=== PATIENT | female | born 1940 | race American Indian/Alaskan Native ===

== ENCOUNTER 2019-03-31 20:58 | Emergency (ER) | payer MEDICARE ==
--- NOTE | 2019-03-31 21:16 | Event Note ---
ED Screening Note ED Screening Note: pt presents with right wrist and hand pain that began today no fall states that she was pushing her when it started PMHx HTN allergy: aspirin, caffeine This initial assessment/diagnostic orders/clinical plan/treatment(s) is/are subject to change based on patients health status, clinical progression and re- assessment by fellow clinical providers in the ED. Further treatment and workup at subsequent clinical providers discretion. Patient/guardian urged not to elope from the ED as their condition may be serious if not clinically assessed and managed. Initial orders include: XR right wrist and hand
[2019-03-31 21:17] VITALS: BP 153/72
--- NOTE | 2019-03-31 22:04 | XRay Report ---
RIGHT WRIST 4 VIEWS RIGHT HAND 3 VIEWS INDICATION: Right hand and wrist pain, no known trauma. COMPARISON: No relevant prior imaging study available. FINDINGS: Right wrist: There is a punctate calcific density along the dorsal aspect of the carpus on the latera l view. This could be nonspecific soft tissue calcification, even vascular. This does not have the ty pical appearance for a dorsal triquetral fracture. No acute, displaced fracture is seen. Carpal align ment is normal. Osteoarthrosis changes are noted. No focal soft tissue swelling. Right hand: Osteoarthrosis changes are noted. There is no acute skeletal abnormality. No focal soft t issue swelling or foreign bodies. IMPRESSION: 1. No acute findings. Signer Name: Naseem Turner MD Signed: 03/31/2019 10:00 PM Workstation Name: [id number]
[2019-03-31] MEDS ORDERED: DELTASONE PO ONE (23:08)
[2019-03-31] MEDS ORDERED: TYLENOL PO ONE (23:08)
[2019-03-31] MEDS ORDERED: ULTRAM PO ONE (23:08)
--- NOTE | 2019-03-31 23:45 | Emergency Department Report ---
Upper Extremity - HPI Chief Complaint: Extremity Injury, Upper Stated Complaint: RIGHT HAND PAIN Time Seen by Provider: 03/31/19 21:14 Upper Extremity: Right Hand Occurred When: Today Severity: moderate Symptoms: Yes Pain with Movement, Yes Limited Range of Movement, Yes Swelling, No Deformity, No Numbness, No Weakness, No Bruising/Ecchymosis, No Laceration or Abrasion Other History: pt is a 78 y/o aaf with hx of arthralgia who presents for right hand pain and swelling onset today no fall injury or trauma pain is 5/10 aching exacerbated by movement and palpation no deformity no numbness no tingling ED Review of Systems ROS: Stated complaint: RIGHT HAND PAIN Other details as noted in HPI Constitutional: denies: chills, fever Eyes: denies: eye pain, eye discharge, vision change ENT: denies: ear pain, throat pain Respiratory: denies: cough, shortness of breath, wheezing Cardiovascular: denies: chest pain, palpitations Endocrine: no symptoms reported Gastrointestinal: denies: abdominal pain, nausea, diarrhea Genitourinary: denies: urgency, dysuria, discharge Musculoskeletal: arthralgia, myalgia, other (right hand ) Skin: denies: rash, lesions Neurological: denies: headache, weakness, paresthesias Psychiatric: denies: anxiety, depression Hematological/Lymphatic: denies: easy bleeding, easy bruising ED Past Medical Hx - Past Medical History Previous Medical History?: Yes Hx Hypertension: Yes Hx Diabetes: Yes Hx Sickle Cell Disease: Yes (SICKLE CELL TRAIT) Hx Arthritis: Yes (RIGHT KNEE) - Surgical History Past Surgical History?: No - Social History Smoking Status: Never Smoker Substance Use Type: None - Medications Home Medications: Home Medications Medication Instructions Recorded Confirmed Last Taken Type Aspirin EC [Aspirin Enteric Coated 81 mg PO QDAY 04/24/15 05/15/15 05/08/15 History TAB] AtorvaSTATin [Lipitor] 20 mg PO DAILY 04/24/15 05/15/15 05/12/15 History Calcium Carbonate/Vitamin D3 1 each PO DAILY 04/24/15 05/15/15 05/12/15 History [Caltrate 600 + D Soft Chew Tab] Metoprolol Xl [Metoprolol 25 mg PO QDAY 04/24/15 05/15/15 05/15/15 04:30 History SUCCINATE ER TAB] Multivit-Min/Iron/Folic/Lutein 1 each PO DAILY 04/24/15 05/15/15 05/12/15 History [Centrum Silver Women Tablet] Triamterene [Dyrenium] 25 mg PO DAILY 04/24/15 05/15/15 05/15/15 04:30 History Acetaminophen [Arthritis Pain 650 mg PO QID PRN #60 tablet.er 03/31/19 Unknown Rx Reliever] Acetaminophen/Codeine [Tylenol 1 tab PO Q6H PRN #12 tab 03/31/19 Unknown Rx /Codeine # 3 tab] predniSONE [Deltasone] 40 mg PO QDAY 5 Days #10 tab 03/31/19 Unknown Rx Upper Extremity Exam - Exam General: Vital signs noted. No distress. Alert and acting appropriately. Head and Torso: No HEENT Abnormality, No Neck Tenderness, No Chest/Lungs Abnormality, No Abdominal Tenderness, No Back Tenderness Shoulder Exam: Yes Normal Range of Motion in Shoulder, No Shoulder Tenderness, No Clavicle Tenderness, No Shoulder Deformity, No AC Joint Tenderness Arm Exam: No Arm/Humerus Tenderness, No Arm Deformity Elbow: No Elbow Tenderness, No Normal Range of Motion in Elbow, No Elbow Deformity Forearm: No Forearm Tenderness, No Forearm Deformity, No Pain with Pronation, No Pain with Supination Wrist: Yes Wrist Tenderness, Yes Normal ROM in Wrist, No Wrist Deformity, No Snuffbox Tenderness, No Pain with Axial Thumb Compression Hand: Yes Hand Tenderness, Yes Normal ROM in Digit(s), No Hand Deformity, No Digit Tenderness, No Digit(s) Deformity, No Tendon Dysfunction CMS Exam: Yes 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 COMPARISON: No relevant prior imaging study available. FINDINGS: Right wrist: There is a punctate calcific density along the dorsal aspect of the carpus on the lateral view. This could be nonspecific soft tissue calcification, even vascular. This does not have the typical appearance for a dorsal triquetral fracture. No acute, displaced fracture is seen. Carpal alignment is normal. Osteoarthrosis changes are noted. No focal soft tissue swelling. Right hand: Osteoarthrosis changes are noted. There is no acute skeletal abnormality. No focal soft tissue swelling or foreign bodies. IMPRESSION: 1. No acute findings. Signer Name: Naseem Turner MD Signed: 03/31/2019 10:00 PM Workstation Name: [id number] Transcribed By: SW Dictated By: Naseem Turner MD Electronically Authenticated By: Naseem Turner MD Signed Date/Time: 03/31/192199 DD/ 57 TD/TT: - Medical Decision Making pain is improved rom improved xray: osteoarthritis changes will treat with prednisone , tylenol, tylenol 3 for break through, follow up with ortho and or pcp in 2-3 days pt and family member verbalized agreement and understanding of same. Critical care attestation.: If time is entered above; I have spent that time in minutes in the direct care of this critically ill patient, excluding procedure time. ED Disposition Clinical Impression: Arthralgia Qualifiers: Joint pain location: hand Laterality: right Qualified Code(s): M25.541 - Pain in joints of right hand Disposition: DC-01 TO HOME OR SELFCARE Is pt being admited?: No Does the pt Need Aspirin: No Condition: Stable Instructions: Arthralgia (ED) Prescriptions: Acetaminophen [Arthritis Pain Reliever] 650 mg PO QID PRN #60 tablet.er PRN Reason: pain predniSONE [Deltasone] 40 mg PO QDAY 5 Days #10 tab Acetaminophen/Codeine [Tylenol /Codeine # 3 tab] 1 tab PO Q6H PRN #12 tab PRN Reason: pain Referrals: JORGE L OVERTON MD [Staff Physician] - 3-5 Days PAUL BUSTILLOS MD [Staff Physician] - 3-5 Days Forms: Work/School Release Form(ED) Time of Disposition: 23:51
== END 2019-04-01 00:05 | disposition home or self-care (01) ==
LOC: ED 20:58
DX: M25.541 Pain in joints of right hand (principal); I10 Essential (primary) hypertension; E11.9 Type 2 diabetes mellitus without complications; M13.861 Other specified arthritis, right knee; D57.1 Sickle-cell disease without crisis; Z79.899 Other long term (current) drug therapy; Z88.6 Allergy status to analgesic agent
CPT/HCPCS: 73110; 73130; 99283; J7512

== ENCOUNTER 2019-04-21 22:45 | Observation (INO) | payer MEDICARE ==
--- NOTE | 2019-04-21 23:00 | Emergency Department Report ---
ED Chest Pain HPI - General Stated Complaint: CHEST PAIN Time Seen by Provider: 04/21/19 22:59 Source: patient, family, EMS Mode of arrival: Stretcher Limitations: Altered Mental Status - History of Present Illness Initial Comments: Patient is a 78-year-old female that presented to emergency room with complaints of chest pain as started 2 hours ago. Patient states she's had chest pain off and on for the last 24 hours but 2 hours became on stronger and more forceful. Patient denies shortness of breath. Patient denies diaphoresis. Patient denies nausea vomiting. Patient states the chest pain is in her left chest and nonradiating. Patient states the pain is a 10 out of 10. Patient states she has a past medical history of hypertension and diabetes. Patient denies CAD and [place]. MD Complaint: chest pain -: Sudden Onset: during rest Pain Location: substernal, left chest Pain Radiation: none Severity: severe Severity scale (0 -10): 10 Quality: sharp Consistency: constant, intermittent Improves With: rest Worsens With: exertion re: denies: nausea, vomting, diaphoresis, dyspnea, sense of impending doom Other Symptoms: denies: cough, fever, syncope, rash, acid taste in mouth, leg swelling, palpitations, burping Treatments Prior to Arrival: none Aspirin use within the Past 7 Days: (0) No - Related Data On Oral Contraceptives: No Home Medications Medication Instructions Recorded Confirmed Last Taken Aspirin EC [Aspirin Enteric Coated 81 mg PO QDAY 04/24/15 05/15/15 05/08/15 TAB] AtorvaSTATin [Lipitor] 20 mg PO DAILY 04/24/15 05/15/15 05/12/15 Calcium Carbonate/Vitamin D3 1 each PO DAILY 04/24/15 05/15/15 05/12/15 [Caltrate 600 + D Soft Chew Tab] Metoprolol Xl [Metoprolol 25 mg PO QDAY 04/24/15 05/15/15 05/15/15 04:30 SUCCINATE ER TAB] Multivit-Min/Iron/Folic/Lutein 1 each PO DAILY 04/24/15 05/15/15 05/12/15 [Centrum Silver Women Tablet] Triamterene [Dyrenium] 25 mg PO DAILY 04/24/15 05/15/15 05/15/15 04:30 Previous Rx's Medication Instructions Recorded Last Taken Type Acetaminophen [Arthritis Pain 650 mg PO QID PRN #60 tablet.er 03/31/19 Unknown Rx Reliever] Acetaminophen/Codeine [Tylenol 1 tab PO Q6H PRN #12 tab 03/31/19 Unknown Rx /Codeine # 3 tab] predniSONE [Deltasone] 40 mg PO QDAY 5 Days #10 tab 03/31/19 Unknown Rx Allergies Allergy/AdvReac Type Severity Reaction Status Date / Time aspirin Allergy Hives Verified 05/09/15 15:29 caffeine AdvReac Dizziness Verified 04/24/15 09:18 Heart Score - HEART Score History: Moderately suspicious EKG: Non-specific Age: > 65 Risk factors: 1-2 risk factors Troponin: < normal limit HEART Score: 5 ED Review of Systems ROS: Stated complaint: CHEST PAIN Other details as noted in HPI Constitutional: denies: chills, fever Eyes: denies: eye pain, eye discharge, vision change ENT: denies: ear pain, throat pain Respiratory: denies: cough, shortness of breath, wheezing Cardiovascular: chest pain. denies: palpitations Endocrine: no symptoms reported Gastrointestinal: denies: abdominal pain, nausea, diarrhea Genitourinary: denies: urgency, dysuria, discharge Musculoskeletal: denies: back pain, joint swelling, arthralgia Skin: denies: rash, lesions Neurological: denies: headache, weakness, paresthesias Psychiatric: denies: anxiety, depression Hematological/Lymphatic: denies: easy bleeding, easy bruising ED Past Medical Hx - Past Medical History Previous Medical History?: Yes Hx Hypertension: Yes Hx Diabetes: Yes Hx Sickle Cell Disease: Yes (SICKLE CELL TRAIT) Hx Arthritis: Yes (RIGHT KNEE) - Surgical History Past Surgical History?: Yes - Family History Family history: no significant - Social History Smoking Status: Never Smoker Substance Use Type: None - Medications Home Medications: Home Medications Medication Instructions Recorded Confirmed Last Taken Type Aspirin EC [Aspirin Enteric Coated 81 mg PO QDAY 04/24/15 05/15/15 05/08/15 History TAB] AtorvaSTATin [Lipitor] 20 mg PO DAILY 04/24/15 05/15/15 05/12/15 History Calcium Carbonate/Vitamin D3 1 each PO DAILY 04/24/15 05/15/15 05/12/15 History [Caltrate 600 + D Soft Chew Tab] Metoprolol Xl [Metoprolol 25 mg PO QDAY 04/24/15 05/15/15 05/15/15 04:30 History SUCCINATE ER TAB] Multivit-Min/Iron/Folic/Lutein 1 each PO DAILY 04/24/15 05/15/15 05/12/15 History [Centrum Silver Women Tablet] Triamterene [Dyrenium] 25 mg PO DAILY 04/24/15 05/15/15 05/15/15 04:30 History Acetaminophen [Arthritis Pain 650 mg PO QID PRN #60 tablet.er 03/31/19 Unknown Rx Reliever] Acetaminophen/Codeine [Tylenol 1 tab PO Q6H PRN #12 tab 03/31/19 Unknown Rx /Codeine # 3 tab] predniSONE [Deltasone] 40 mg PO QDAY 5 Days #10 tab 03/31/19 Unknown Rx ED Physical Exam - General Limitations: No Limitations General appearance: alert, in no apparent distress - Head Head exam: Present: atraumatic, normocephalic - Eye Eye exam: Present: normal appearance - ENT ENT exam: Present: mucous membranes moist - Neck Neck exam: Present: normal inspection - Respiratory Respiratory exam: Present: normal lung sounds bilaterally. Absent: respiratory distress - Cardiovascular Cardiovascular Exam: Present: regular rate, normal rhythm. Absent: systolic murmur, diastolic murmur, rubs, gallop - GI/Abdominal GI/Abdominal exam: Present: soft, normal bowel sounds - Extremities Exam Extremities exam: Present: normal inspection - Back Exam Back exam: Present: normal inspection - Neurological Exam Neurological exam: Present: alert, oriented X3 - Psychiatric Psychiatric exam: Present: normal affect, normal mood - Skin Skin exam: Present: warm, dry, intact, normal color. Absent: rash ED Course Vital Signs 04/21/19 04/21/19 04/22/19 23:04 23:08 00:00 Temperature 98.2 F Pulse Rate 67 64 Respiratory 18 18 Rate Blood Pressure 155/77 147/64 O2 Sat by Pulse 100 100 98 Oximetry - Reevaluation(s) Reevaluation #1: Patient's primary care doctor Cristal. I discussed all results with patient. I discussed plan of care outpatient. Patient agrees to plan of care. 04/22/19 00:33 - Consultations Consultation #1: Patient's primary care paged 04/22/19 00:33 I discussed case with primary care, Dr. Adrian. Dr. Adrian states the patient admit the patient to tele. 04/22/19 00:37 JOSE M score - Jose M Score Age > 65: (1) Yes Aspirin use within the Past 7 Days: (0) No 3 or more CAD Risk Factors: (0) No 2 or more Angina events in past 24 hrs: (1) Yes Known CAD with more than 50% Stenosis: (0) No Elevated Cardiac Markers: (0) No ST Deviation Greater than 0.5mm: (0) No JOSE M Score: 2 ED Medical Decision Making - Lab Data Result diagrams: 04/21/19 23:18 04/21/19 23:18 - EKG Data -: EKG Interpreted by Me EKG shows normal: sinus rhythm, axis, intervals, QRS complexes, ST-T waves Rate: normal - Radiology Data Radiology results: report reviewed, image reviewed CHEST 1 VIEW INDICATION / CLINICAL INFORMATION: Chest Pain. COMPARISON: None available. FINDINGS: SUPPORT DEVICES: None. HEART / MEDIASTINUM: No significant abnormality. LUNGS / PLEURA: No significant pulmonary or pleural abnormality. No pneumothorax. ADDITIONAL FINDINGS: No significant additional findings. IMPRESSION: 1. No significant change - Medical Decision Making Patient is a 78-year-old female presents emergency room with complaints of chest pain. This is her score is 5. Patient's labs unremarkable. Patient's chest pain started 2 hours ago. Patient admitted to the pcp's service. Patient allergic to aspirin. Patient given morphine for the pain. Patient placed on oxygen. Patient's chest x-ray negative. EKG negative. - Differential Diagnosis ACS. Chest pain. Diabetes. Critical Care Time: Yes Critical care attestation.: If time is entered above; I have spent that time in minutes in the direct care of this critically ill patient, excluding procedure time. Critical Care Time: 35 minutes ED Disposition Clinical Impression: Chest pain Qualifiers: Chest pain type: unspecified Qualified Code(s): R07.9 - Chest pain, unspecified Diabetes Qualifiers: Diabetes mellitus type: type 2 Diabetes mellitus nursing home insulin use: unspecified nursing home insulin use status Diabetes mellitus complication status: with other specified complication Qualified Code(s): E11.69 - Type 2 diabetes mellitus with other specified complication Disposition: OP ADMIT IP TO THIS HOSP Is pt being admited?: Yes Does the pt Need Aspirin: No Condition: Critical Time of Disposition: 00:27
[2019-04-21 23:27] LABS: Basophils % (Auto) 0.7 % (0.0-1.8); Eosinophils # (Auto) 0.1 K/mm3 (0.0-0.4); Eosinophils % (Auto) 2.3 % (0.0-4.3); Hematocrit 35.9 % (30.3-42.9); Hemoglobin 11.9 gm/dl (10.1-14.3); Lymphocytes # (Auto) 1.8 K/mm3 (1.2-5.4); Lymphocytes % (Auto) 42.1 % (13.4-35.0); Mean Corpuscular HGB Conc 33 % (30-34); Mean Corpuscular Volume 92 fl (79-97); Monocytes # (Auto) 0.4 K/mm3 (0.0-0.8); Monocytes % (Auto) 8.4 % (0.0-7.3); Platelet Count 195 K/mm3 (140-440); Red Blood Count 3.92 M/mm3 (3.65-5.03); Red Cell Distribution Width 15.5 % (13.2-15.2)
--- NOTE | 2019-04-21 23:36 | XRay Report ---
CHEST 1 VIEW INDICATION / CLINICAL INFORMATION: Chest Pain. COMPARISON: None available. FINDINGS: SUPPORT DEVICES: None. HEART / MEDIASTINUM: No significant abnormality. LUNGS / PLEURA: No significant pulmonary or pleural abnormality. No pneumothorax. ADDITIONAL FINDINGS: No significant additional findings. IMPRESSION: 1. No significant change Signer Name: Ramirez Meyer MD Signed: 04/21/2019 11:31 PM Workstation Name: [id number]
[2019-04-21 23:45] LABS: Alanine Aminotransferase 19 units/L (7-56); Albumin 4.2 g/dL (3.9-5); BUN/Creatinine Ratio 24; Blood Urea Nitrogen 24 mg/dL (7-17); Calcium 9.3 mg/dL (8.4-10.2); Hemolysis Index 0
[2019-04-22] MEDS ORDERED: MORPHINE IV ONE
[2019-04-22] MEDS ORDERED: ACETAMINOPHEN 650 MG PO PRN (09:55)
[2019-04-22] MEDS ORDERED: NON-FORMULARY (Multivit-Min/Iron/Folic/Lutein [Centrum Silver Women Tablet] 1 EACH) PO SCH (10:00)
[2019-04-22] MEDS ORDERED: NON-FORMULARY (Calcium Carbonate/Vitamin D3 [Caltrate 600 + D Soft Chew Tab] 1 EACH) PO SCH (10:00)
[2019-04-22] MEDS ORDERED: SODIUM CHLORIDE FLUSH SYRINGE 10 ML IV PRN (10:01)
[2019-04-22] MEDS ORDERED: MORPHINE IV PRN (10:01)
--- NOTE | 2019-04-22 10:01 | History and Physical Report ---
History of Present Illness Date of examination: 04/22/19 Date of admission: 04/22/19 00:37 Chief complaint: chest pain - 1 day History of present illness: Patient is a 78-year-old female that presented to emergency room with complaints of left sided chest pain as started 2 prior to presentation. Patient states she's had chest pain off and on for the last 24 hours but 2 hours progressively getting worse. Reproducible. Patient denies shortness of breath, diaphoresis, nausea vomiting. Nonradiating. Patient states the pain is a 10 out of 10. Patient states she has a past medical history of hypertension and diabetes. Patient denies CAD and [place]. At the Ed, Initial set of Alo was normal. SBP was found to be elevated to 170s. Past History Past Medical History: diabetes, hypertension Past Surgical History: No surgical history Social history: denies: smoking, alcohol abuse Family history: hypertension Medications and Allergies Allergies Allergy/AdvReac Type Severity Reaction Status Date / Time aspirin Allergy Hives Verified 05/09/15 15:29 caffeine AdvReac Dizziness Verified 04/24/15 09:18 Home Medications Medication Instructions Recorded Confirmed Last Taken Type Aspirin EC [Aspirin Enteric Coated 81 mg PO QDAY 04/24/15 04/22/19 05/08/15 History TAB] Calcium Carbonate/Vitamin D3 1 each PO DAILY 04/24/15 04/22/19 05/12/15 History [Caltrate 600 + D Soft Chew Tab] Metoprolol Xl [Metoprolol 25 mg PO QDAY 04/24/15 04/22/19 05/15/15 04:30 History SUCCINATE ER TAB] Multivit-Min/Iron/Folic/Lutein 1 each PO DAILY 04/24/15 04/22/19 05/12/15 History [Centrum Silver Women Tablet] Acetaminophen [Arthritis Pain 650 mg PO QID PRN #60 tablet.er 03/31/19 04/22/19 Unknown Rx Reliever] Pravastatin Sodium [Pravastatin] 20 mg PO QHS 04/22/19 04/22/19 Unknown History Triamter/Hctz 37.5-25 mg 1 tab PO QDAY 04/22/19 04/22/19 Unknown History [Maxzide-25] metFORMIN [Glucophage] 500 mg PO BID 04/22/19 04/22/19 Unknown History Active Meds: Active Medications Aspirin (Halfprin Ec) 81 mg PO QDAY ANNELISE Metformin HCl (Glucophage) 500 mg PO BID [facility] Metoprolol Succinate (Toprol Xl) 25 mg PO QDAY [facility] Miscellaneous Medication (Acetaminophen [Arthritis Pain Reliever]) 650 mg PO QID PRN PRN Reason: pain Miscellaneous Medication (Calcium Carbonate/Vitamin D3 [Caltrate 600 + D Soft Chew Tab]) 1 each PO DAILY ANNELISE Miscellaneous Medication (Multivit-Min/Iron/Folic/Lutein [Centrum Silver Women Tablet]) 1 each PO DAILY ANNELISE Miscellaneous Medication (Pravastatin Sodium [Pravastatin]) 20 mg PO QHS ANNELISE Triamterene/HCTZ (Maxzide-25) 1 each PO QDAY [facility] Review of systems Constitutional: Well Nourished and Well developed. Head: NC/ AT Eyes: Denies any visual impairments. No discharge from the eyes Nose: Denies any rhinorrhea or epistaxis Throats: Denies any post nasal drainage. Ears: Denies any hearing deficits Cardiovascular system: Has chest pain, shortness of breath, orthopnea, paroxysmal nocturnal dyspnea, or palpitation. Respiratory system: Denies any cough, difficulty breathing, wheezing, pleuritic chest pain, Gastrointestinal system: Denies any abdominal pain, nausea vomiting, hematemesis or melena. Neurological system: Denies any headache, slurred speech, facial droop, lateralizing weakness Genitalia system: Denies any dysuria, urinary frequency or urgency, urethral discharge Skin: No rashes, hyperpigmented spots. Hematological: Denies any cervical tenderness hemorrhages or petechia. Immunological: Denies any multiple septic spots, Lymphatic: Denies any generalized lymphadenopathy. Endocrine: Denies any polyuria, polydipsia, polyphagia. No heat or cold intolerance. Musculoskeletal system: No joint pain or swelling. Psych: No visual, tactile, auditory or hallucination Exam - Physical Exam Narrative exam: Constitutional: Well-nourished well-developed. In no distress Head: Normocephalic atraumatic Eyes: Pupils are equal round and reactive to light Nose: No enlarged turbinates, no septal deviation. Mouth: Moist mucous membranes. Neck: Supple no thyromegaly. No bruit. No JVD Heart: Regular rate and rhythm, S1-S2 normal. No rubs murmurs or gallop Lungs: Clear to auscultation bilaterally. no rales or rhonchi Abdomen: Soft, nontender. Bowel sound are present. Extremities: No edema, no cyanosis, no clubbing. Neuro: Alert oriented Oriented x3. No focal sensory or motor deficit. Skin: No rashes or hyperpigmented spots Musculoskeletal system: No joint pain or swelling Hematological: No petechia or subcutanous hemorrhages. Immunological: No multiple septic spots on the skin Lymphatic: No generalized lymphadenopathy Psychiatry: Euthymic. Calm. - Constitutional Vitals: Temp Pulse Resp BP Pulse Ox 98.2 F 96 H 15 175/119 98 04/22/19 08:06 04/22/19 08:31 04/22/19 08:31 04/22/19 08:31 04/22/19 09:38 Results - Labs CBC & Chem 7: 04/22/19 10:22 04/22/19 10:22 Labs: Abnormal lab results 04/21/19 04/21/19 Range/Units 23:18 23:18 WBC 4.4 L (4.5-11.0) K/mm3 RDW 15.5 H (13.2-15.2) % Lymph % (Auto) 42.1 H (13.4-35.0) % [place] % (Auto) 8.4 H (0.0-7.3) % BUN 24 H (7-17) mg/dL Assessment and Plan -Chest pain Serial Alo Oxygen, ASA, metoprolo, Nitroglycerin and morhine Stress test - HTN: Optimize controm - T2DM SSI A1c Consiten CHO diet - DVT PPx with heparin and GI with Pepcid Code status : Pt is full code - disposition D/c home in 1-2 days
[2019-04-22 10:46] LABS: Basophils % (Auto) 0.8 % (0.0-1.8); Eosinophils # (Auto) 0.1 K/mm3 (0.0-0.4); Eosinophils % (Auto) 3.5 % (0.0-4.3); Hemoglobin 11.8 gm/dl (10.1-14.3); Lymphocytes # (Auto) 1.3 K/mm3 (1.2-5.4); Lymphocytes % (Auto) 40.6 % (13.4-35.0); Mean Corpuscular HGB Conc 33 % (30-34); Mean Corpuscular Volume 92 fl (79-97); Monocytes # (Auto) 0.4 K/mm3 (0.0-0.8); Monocytes % (Auto) 10.9 % (0.0-7.3); Platelet Count 201 K/mm3 (140-440); Red Blood Count 3.91 M/mm3 (3.65-5.03); Red Cell Distribution Width 15.5 % (13.2-15.2)
[2019-04-22 10:57] LABS: INR 1.02 (0.87-1.13)
[2019-04-22] MEDS ORDERED: PLAVIX PO SCH (11:00)
[2019-04-22] MEDS ORDERED: COZAAR PO SCH ×2 (11:00→11:30)
[2019-04-22] MEDS ORDERED: NACL 0.9% 1000 ML 1,000 ML IV SCH (11:00)
[2019-04-22] MEDS ORDERED: HALFPRIN EC PO SCH (11:00)
[2019-04-22 11:01] LABS: BUN/Creatinine Ratio 19; Blood Urea Nitrogen 19 mg/dL (7-17); Calcium 9.1 mg/dL (8.4-10.2); Chol/HDL Ratio 2.63 %; HDL Cholesterol 76 mg/dL (40-59); Hemolysis Index 0; LDL Cholesterol,Direct 128 mg/dL (50-130)
[2019-04-22] MEDS ORDERED: LEXISCAN IV ONE ×2 (11:09→11:10)
[2019-04-22] MEDS ORDERED: TYLENOL PO PRN (11:22)
[2019-04-22] MEDS ORDERED: MAXZIDE-25 PO SCH (11:30)
[2019-04-22] MEDS ORDERED: TOPROL XL PO SCH (11:30)
[2019-04-22] MEDS: GLUCOPHAGE PO SCH ×2 (11:35→18:14)
[2019-04-22] MEDS ORDERED: CALTRATE PLUS PO SCH (12:00)
[2019-04-22] MEDS ORDERED: THERAGRAN-M Tab PO SCH (12:00)
[2019-04-22 13:53] VITALS: BP 127/71
[2019-04-22] MEDS ORDERED: NITRO-BID 2% TP SCH (14:00)
--- NOTE | 2019-04-22 19:25 | Discharge Summary ---
Providers - Providers Date of Admission: 04/22/19 00:37 Date of discharge: 04/22/19 Attending physician: PAUL BUSTILLOS 04/22/19 Consult to Cardiac Rehabilitation [CONS] Routine Reason For Exam: Phase I Primary care physician: [employer] ART[employer]IC DIRECTOR Hospitalization Reason for admission: Chest pain, HTN Condition: Critical Pertinent studies: EKG showed sinus bradycardia Procedures: Lexiscan stress was normal Hospital course: Patient is a 78-year-old female that presented to emergency room with complaints of left sided chest pain as started 2 prior to presentation. Patient states she's had chest pain off and on for the last 24 hours but 2 hours progressively getting worse. Reproducible. Patient denies shortness of breath, diaphoresis, nausea vomiting. Nonradiating. Patient states the pain is a 10 out of 10. Patient states she has a past medical history of hypertension and diabetes. Patient denies CAD and [place]. At the Ed, Initial set of Alo was normal. SBP was found to be elevated to 170s. Was admitted for further treatment. CXR was normal. Lexiscan Stress was normal. chesoila nelson reamin reproducible. She is therefore being discharged today to follow up with PCP in 3-5 days Disposition: DC-01 TO HOME OR SELFCARE Time spent for discharge: 35 min Core Measure Documentation - Palliative Care Palliative Care/ Comfort Measures: Not Applicable - Core Measures Any of the following diagnoses?: none Exam - Physical Exam Narrative exam: Constitutional: Well-nourished well-developed. In no distress Head: Normocephalic atraumatic Eyes: Pupils are equal round and reactive to light Nose: No enlarged turbinates, no septal deviation. Mouth: Moist mucous membranes. Neck: Supple no thyromegaly. No bruit. No JVD Heart: Regular rate and rhythm, S1-S2 normal. No rubs murmurs or gallop Lungs: Clear to auscultation bilaterally. no rales or rhonchi Abdomen: Soft, nontender. Bowel sound are present. Extremities: No edema, no cyanosis, no clubbing. Neuro: Alert oriented Oriented x3. No focal sensory or motor deficit. Skin: No rashes or hyperpigmented spots Musculoskeletal system: No joint pain or swelling Hematological: No petechia or subcutanous hemorrhages. Immunological: No multiple septic spots on the skin Lymphatic: No generalized lymphadenopathy Psychiatry: Euthymic. Calm. - Constitutional Vitals: Temp Pulse Resp BP Pulse Ox 98.0 F 123 H 20 127/71 97 04/22/19 13:37 04/22/19 11:41 04/22/19 13:54 04/22/19 13:37 04/22/19 16:00 Plan Activity: fall precautions Weight Bearing Status: Weight Bear as Tolerated Diet: diabetic Follow up with: PRIMARY CARE, [Primary Care Provider] - 3 Days Prescriptions: Losartan [Cozaar] 100 mg PO QDAY #30 tablet
[2019-04-22] MEDS ORDERED: NON-FORMULARY (Pravastatin Sodium [Pravastatin] 20 MG) PO SCH (22:00)
--- NOTE | 2019-04-22 23:57 | Treadmill Report ---
NUCLEAR PERFUSION STUDY REASON FOR STUDY: Chest pain. READING PHYSICIAN: Ritesh Coleman MD IMAGING PROTOCOL: The patient received 10 mCi of Technetium 99m Tetrofosmin for resting image and 28 mCi of Technetium 99m Tetrofosmin for stress imaging. The imaging for the whole procedure was completed 30-90 minutes following the initial injection of Technetium 99m Tetrofosmin. The SPECT imaging in the 180 degree arc was performed in the right anterior oblique projection. Computerized reconstruction of the images was performed for analysis. IMAGING RESULTS: Normal cavity size from stress to rest. Normal distribution of radionuclide in the anterior, inferior, septal, and apical regions. Gated SPECT, EF of greater than 65% with no wall motion abnormality. The patient infused Lexiscan with no EKG changes. SUMMARY: 1. Negative Lexiscan EKG. 2. Normal rest and stress myocardial perfusion scan. No significant stress ischemia. No wall motion abnormality. Gated SPECT, EF greater than 65%. JOB# [id number] YOSVANY/SHANIQUA
== END 2019-04-22 20:30 | disposition home or self-care (01) ==
LOC: ED 22:45 → 4A 04-22 00:37
PROVIDERS: ADMIT Family Medicine; ATTEND Family Medicine
DX: R07.89 Other chest pain (principal); E11.9 Type 2 diabetes mellitus without complications; I10 Essential (primary) hypertension
CPT/HCPCS: 36415; 71045; 78452; 80048; 80053; 80061; 83036; 83880; 84484; 85025; 85610; 93005; 93010; 93017; 96374; 99291; A9502; G0378; J2270; J2785

== ENCOUNTER 2019-09-23 19:59 | Emergency (ER) | payer MEDICARE ==
[2019-09-23 20:06] VITALS: BP 150/63
--- NOTE | 2019-09-23 21:05 | Event Note ---
ED Screening Note ED Screening Note: 78 y/o female comes in for right ankle pain after she slipped going up the stair. States that she twisted her right ankle. This happen last week. This initial assessment/diagnostic orders/clinical plan/treatment(s) is/are subject to change based on patients health status, clinical progression and re-assessment by fellow clinical providers in the ED. Further treatment and workup at subsequent clinical providers discretion. Patient/guardian urged not to elope from the ED as their condition may be serious if not clinically assessed and managed. Initial orders include:
--- NOTE | 2019-09-23 21:11 | Emergency Department Report ---
Chief Complaint: Extremity Injury, Lower Stated Complaint: RT ANKLE INJURY Time Seen by Provider: 09/23/19 21:00 - HPI History of Present Illness: 78 y/o female comes in for right ankle pain after she slipped going up the stair. States that she twisted her right ankle. This happen last week. - Exam Vital Signs: Vital Signs 09/23/19 20:03 Temperature 98.2 F Pulse Rate 75 Respiratory 16 Rate Blood Pressure 150/63 O2 Sat by Pulse 98 Oximetry Physical Exam: AxO times 3 NAD Ext right FROM mild tenderness to touch of lateral malleolus. Walking without difficulties. MSE screening note: Focused history and physical exam performed. Due to findings the following was ordered: 78 y/o female comes in for right ankle pain after she slipped going up the stair. States that she twisted her right ankle. This happen last week. Donny bandage Ice elevated and rest. Take Tylenol as needed for pain. ED Disposition for MSE Clinical Impression: Right ankle sprain Disposition: Z-07 MED SCREENING EXAM-LEFT Is pt being admited?: No Does the pt Need Aspirin: No Condition: Stable Additional Instructions: Donny bandage Ice elevated and rest. Take Tylenol as needed for pain.
== END 2019-09-23 21:20 | disposition left against medical advice (07) ==
LOC: ED 19:59
DX: S93.401A Sprain of unspecified ligament of right ankle, initial encounter (principal); Z88.6 Allergy status to analgesic agent; Z88.8 Allergy status to other drugs, medicaments and biological substances; W10.9XXA Fall (on) (from) unspecified stairs and steps, initial encounter; Y93.89 Activity, other specified; Y92.89 Other specified places as the place of occurrence of the external cause; Y99.8 Other external cause status
CPT/HCPCS: 99282

== ENCOUNTER 2019-10-04 10:37 | Outpatient (CLI) | payer MEDICARE, BC ==
--- NOTE | 2019-10-04 12:08 | XRay Report ---
RIGHT ANKLE HISTORY: Pain. COMPARISON: None. TECHNIQUE: 2 views of the right ankle obtained. FINDINGS: Bones: No fracture or dislocation. Joint spaces: Maintained. Soft tissues: Moderate soft tissue swelling, greater on the medial side. No soft tissue air or foreig n body. Additional findings: A small plantar calcaneal spur. IMPRESSION: 1. Nonspecific soft tissue swelling. 2. No significant bony abnormality. Signer Name: Eber Falcon MD Signed: 10/04/2019 12:04 PM Workstation Name: [id number]
== END 2019-10-04 10:38 | disposition home or self-care (01) ==
LOC: XRAY 10:37
PROVIDERS: ATTEND Orthopaedic Surgery
DX: M77.31 Calcaneal spur, right foot (principal)

== ENCOUNTER 2019-11-10 06:36 | Outpatient (CLI) | payer MEDICARE, BC ==
--- NOTE | 2019-11-10 08:55 | Magnetic Resonance Report ---
MRI RIGHT ANKLE WITHOUT CONTRAST INDICATION: PAIN IN RT ANKLE AND JOINT OF RIGHT FOOT. TECHNIQUE: Multiplanar, multisequence MR images were obtained. COMPARISON: Right ankle x-ray 10/04/2019 FINDINGS: ACHILLES TENDON: No significant abnormality. PLANTAR FASCIA: Thickened without edema characteristic for mild fasciosis. POSTERIOR TIBIAL TENDON: No significant abnormality. FLEXOR DIGITORUM LONGUS TENDON: No significant abnormality. FLEXOR HALLUCIS LONGUS TENDON: No significant abnormality. PERONEAL TENDONS: No significant abnormality. EXTENSOR TENDONS: No significant abnormality. ANTERIOR TALOFIBULAR LIGAMENT: Thickening characteristic for chronic sprain POSTERIOR TALOFIBULAR LIGAMENT: No significant abnormality. ANTERIOR TIBIOFIBULAR LIGAMENT: No significant abnormality. POSTERIOR TIBIOFIBULAR LIGAMENT: No significant abnormality. DISTAL TIBIOFIBULAR SYNDESMOSIS: No significant abnormality. CALCANEOFIBULAR LIGAMENT: Chronic sprain DELTOID LIGAMENT: Probable old avulsion fracture off tip of medial malleolus at the attachment of the deltoid ligament. SPRING LIGAMENT: No significant abnormality. TIBIOTALAR ARTICULAR CARTILAGE: No chondrosis or articular cartilage defect. TIBIOTALAR JOINT SPACE: No significant joint effusion or synovitis. No intra-articular bodies. SUBTALAR JOINTS: No significant abnormality. SINUS TARSI: Mild edema with several tiny ganglia TARSAL TUNNEL: No significant abnormality. BONES: No significant bone marrow edema. No fracture. No osseous lesion. SUBCUTANEOUS SOFT TISSUES: No significant abnormality. ADDITIONAL FINDINGS: None. IMPRESSION: 1. Chronic sprains of ATFL and calcaneofibular ligament with old well-corticated avulsion fracture of deep deltoid ligament along inferior margin of medial malleolus 2. Chronic plantar fasciosis. Signer Name: Federico Boyd MD Signed: 11/10/2019 8:50 AM Workstation Name: [email or web address]
== END 2019-11-10 06:37 | disposition home or self-care (01) ==
LOC: MRI 06:36
PROVIDERS: ATTEND Orthopaedic Surgery
DX: M25.571 Pain in right ankle and joints of right foot (principal); S93.411A Sprain of calcaneofibular ligament of right ankle, initial encounter; X58.XXXA Exposure to other specified factors, initial encounter; Y93.89 Activity, other specified; Y92.89 Other specified places as the place of occurrence of the external cause; Y99.8 Other external cause status
CPT/HCPCS: 73721

== ENCOUNTER 2020-11-02 10:09 | Day surgery (SDC) | payer MEDICARE, BC ==
--- NOTE | 2020-11-02 11:45 | XRay Report ---
RIGHT ANKLE 3 VIEWS INDICATION: RIGHT ANKLE PAIN. COMPARISON: None. IMPRESSION: Normal bone mineralization. 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 No acute osseous abnormality or bone lesion. Ossicle distal to the medial malleolus is noted . Moderate plantar spur. There is mild diffuse soft tissue edema or swelling. Signer Name: Negrito Rausch Jr, MD Signed: 11/02/2020 11:40 AM Workstation Name: [id number]
== END 2020-11-02 10:10 | disposition home or self-care (01) ==
LOC: XRAY 10:09
PROVIDERS: ATTEND Orthopaedic Surgery
DX: S82.91XA Unspecified fracture of right lower leg, initial encounter for closed fracture (principal); M19.071 Primary osteoarthritis, right ankle and foot; M77.51 Other enthesopathy of right foot and ankle; X58.XXXA Exposure to other specified factors, initial encounter; Y93.89 Activity, other specified; Y92.89 Other specified places as the place of occurrence of the external cause; Y99.8 Other external cause status